=== PATIENT | male | born 1950 | race Caucasian/White ===

== ENCOUNTER 2021-07-19 10:11 | Inpatient (IN) ==
[2021-07-19] MEDS ORDERED: Naloxone 0.4 MG/ML INJ IVP PRN (12:16)
[2021-07-19] MEDS ORDERED: Perflutren Lipid Microsphere 1.3 ML in 0.9 % Sodium Chloride 8.7 ML IVP PRN (12:24)
[2021-07-19] MEDS ORDERED: Dextrose Gel 15 GM/37.5 ML TUBE PO PRN ×2 (13:46)
[2021-07-19] MEDS ORDERED: *HR* Dextrose 50 % in Water (Syg) 50 ML SYRINGE IVP PRN (13:46)
[2021-07-19] MEDS ORDERED: D5% in Water 1,000 ML IVC PRN (13:46)
[2021-07-19 14:24] LABS: Chol/HDL Ratio 3.7 (0-4.9); Troponin I 0.96 ng/mL (< 0.04)
[2021-07-19 15:09] LABS: Estimated Average Glucose 203 mg/dl; Hemoglobin A1C 8.7 %
[2021-07-19] MEDS ORDERED: *HR* Heparin 5,000 UNIT/ML VIAL IVP PRN ×2 (16:01)
[2021-07-19] MEDS ORDERED: *HR* Heparin 5,000 UNIT/ML VIAL IVP ONE (16:01)
[2021-07-19] MEDS ORDERED: Heparin 25,000UNIT/250ML 1/2NS 25,000 UNIT/250 ML IV.SOLN IVC SCH (16:15)
[2021-07-19 16:33] LABS: Hematocrit 42.5 % (37.5-50.1); Hemoglobin 14.1 g/dL (12.9-16.9); Mean Corpuscular HGB Conc 33.2 g/dL (31.6-35.5); Mean Corpuscular Hemoglobin 29.4 pg (28.0-33.3); Mean Corpuscular Volume 88.5 fL (83.0-100.0); Mean Platelet Volume 10.9 fL (9.4-12.4); Platelet Count 141 K/mcL (140-400); Red Cell Distribution Width 13.9 % (11.5-14.5)
[2021-07-19 16:54] LABS: Prothrombin Time 32.8 Seconds (9.4-12.1)
[2021-07-19] MEDS: Insulin LISPRO 300 UNITS/3 ML VIAL SUBQ SCH (16:57)
[2021-07-19] MEDS ORDERED: carvediloL 25 MG TABLET PO SCH (17:00)
[2021-07-19 17:25] LABS: Heparin anti-factor XA UFH < 0.04 IU/mL (0.30-0.70)
[2021-07-20 07:01] LABS: Basophils % 0.3 %; Eosinophils # 0.1 K/mcL (0.0-0.6); Eosinophils % 1.4 %; Hematocrit 42.3 % (37.5-50.1); Hemoglobin 13.6 g/dL (12.9-16.9); Immature Granulocytes % 0.2 % (0-4); Lymphocytes # 3.8 K/mcL (0.6-4.6); Lymphocytes % 40.2 %; Mean Corpuscular HGB Conc 32.2 g/dL (31.6-35.5); Mean Corpuscular Hemoglobin 28.6 pg (28.0-33.3); Mean Corpuscular Volume 88.9 fL (83.0-100.0); Mean Platelet Volume 11.3 fL (9.4-12.4); Monocytes # 0.7 K/mcL (0.0-1.3); Monocytes % 7.2 %; Neutrophils # 4.8 K/mcL (1.6-8.9); Platelet Count 145 K/mcL (140-400); Red Blood Count 4.76 M/mcL (4.19-5.50); Red Cell Distribution Width 13.8 % (11.5-14.5); Segmented Neutrophils % 50.7 %; White Blood Count 9.4 K/mcL (4.3-11.1)
[2021-07-20] MEDS: Insulin LISPRO 300 UNITS/3 ML VIAL SUBQ SCH ×3 (07:01→16:07)
[2021-07-20 07:09] LABS: INR 2.6; Prothrombin Time 28.3 Seconds (9.4-12.1)
[2021-07-20 07:23] LABS: Alanine Aminotransferase 16 Units/L (7-52); Albumin 4.2 g/dL (3.5-5.7); Albumin/Globulin Ratio 1.5 (1.1-2.2); Alkaline Phosphatase 93 Units/L (34-104); Aspartate Amino Transferase 31 Units/L (13-39); BUN/Creatinine Ratio 23 (6-26); Bilirubin,Total 1.3 mg/dL (0.3-1.0); Blood Urea Nitrogen 24 mg/dL (8-23); Calcium 9.6 mg/dL (8.6-10.3); Carbon Dioxide 25 mEq/L (23-29); Chloride 107 mEq/L (98-107); Globulin 2.8 g/dL (2.4-3.5); Glucose 158 mg/dL (70-105); Osmolality,Calculated 295 (280-300); Potassium 4.3 mEq/L (3.5-5.1); Sodium 139 mEq/L (136-145); eGFR For African Americans > 60 (> 60); eGFR For Non-African Americans > 60 (> 60)
[2021-07-20] MEDS ORDERED: carvediloL 6.25 MG TABLET PO SCH (08:00)
[2021-07-20] MEDS: Aspirin Enteric Coated 81 MG Tablet PO SCH (08:50)
[2021-07-20] MEDS: amLODIPine 5 MG TABLET PO SCH (08:50)
[2021-07-20] MEDS: Isosorbide MONOnitrate (24 HR) 30 MG TAB.ER.24H PO SCH (08:50)
[2021-07-20] MEDS: lisinopriL 20 MG TABLET PO SCH (08:51)
[2021-07-20] MEDS: Furosemide 20 MG TABLET PO SCH (08:51)
[2021-07-20 09:54] LABS: Troponin I 3.49 ng/mL (< 0.04)
[2021-07-20 10:23] LABS: Magnesium 2.1 mg/dL (1.6-2.6); Phosphorous 2.6 mg/dL (2.7-4.5)
[2021-07-20] MEDS: carvediloL 6.25 MG TABLET PO SCH (16:07)
[2021-07-21 07:08] LABS: INR 1.5; Prothrombin Time 16.2 Seconds (9.4-12.1)
[2021-07-21] MEDS ORDERED: *HR* Heparin 5,000 UNIT/ML VIAL IVP PRN ×4 (08:05→08:42)
[2021-07-21] MEDS ORDERED: *HR* Heparin 5,000 UNIT/ML VIAL IVP ONE ×2 (08:05→08:42)
[2021-07-21 08:41] LABS: Hematocrit 43.7 % (37.5-50.1); Mean Corpuscular Volume 88.6 fL (83.0-100.0); Red Blood Count 4.93 M/mcL (4.19-5.50); Red Cell Distribution Width 13.6 % (11.5-14.5)
[2021-07-21 08:43] LABS: Hemoglobin 14.3 g/dL (12.9-16.9); Immature Platelets 8.3 % (1.1-6.1); Mean Corpuscular HGB Conc 32.7 g/dL (31.6-35.5)
[2021-07-21] MEDS ORDERED: Heparin 25,000UNIT/250ML 1/2NS 25,000 UNIT/250 ML IV.SOLN IVC SCH (08:45)
[2021-07-21 08:48] LABS: Heparin anti-factor XA UFH < 0.04 IU/mL (0.30-0.70)
[2021-07-21 08:49] LABS: INR 1.4; Prothrombin Time 15.3 Seconds (9.4-12.1)
[2021-07-21] MEDS: Insulin LISPRO 300 UNITS/3 ML VIAL SUBQ SCH ×3 (08:55→17:14)
[2021-07-21] MEDS: lisinopriL 20 MG TABLET PO SCH (08:57)
[2021-07-21] MEDS: Aspirin Enteric Coated 81 MG Tablet PO SCH (08:57)
[2021-07-21] MEDS: carvediloL 6.25 MG TABLET PO SCH ×2 (08:57→18:23)
[2021-07-21] MEDS: Isosorbide MONOnitrate (24 HR) 30 MG TAB.ER.24H PO SCH (08:58)
[2021-07-21] MEDS: amLODIPine 5 MG TABLET PO SCH (08:58)
[2021-07-21] MEDS: Furosemide 20 MG TABLET PO SCH (08:58)
[2021-07-21] MEDS: Heparin 25,000UNIT/250ML 1/2NS 25,000 UNIT/250 ML IV.SOLN IVC SCH (09:06)
[2021-07-21] MEDS ORDERED: *HR* Midazolam HCl 2 MG/2 ML VIAL ONE (12:58)
[2021-07-21] MEDS ORDERED: *HR* FentaNYL (PF) 100 MCG/2 ML VIAL ONE (12:58)
[2021-07-21] MEDS ORDERED: Nitroglycerin 1,000 MCG/5 ML VIAL IV ONE (12:59)
[2021-07-21] MEDS ORDERED: Heparin 1,000 UNITS/500 mL 500 ML ONE (12:59)
[2021-07-21] MEDS ORDERED: Iopamidol - 370 200 ML INFUS..BTL ONE (12:59)
[2021-07-21] MEDS ORDERED: *HR* Heparin 10,000 UNIT/10 ML VIAL ONE (12:59)
[2021-07-21] MEDS ORDERED: 0.9 % Sodium Chloride 2,000 ML ONE (12:59)
[2021-07-21] MEDS ORDERED: Warfarin perPT PO PRN (18:00)
[2021-07-21] MEDS ORDERED: *HR* Warfarin 4 MG TABLET PO ONE (18:00)
[2021-07-22 02:42] LABS: INR 1.3
[2021-07-22] MEDS: Insulin LISPRO 300 UNITS/3 ML VIAL SUBQ SCH ×3 (09:09→17:26)
[2021-07-22] MEDS: amLODIPine 5 MG TABLET PO SCH (09:11)
[2021-07-22] MEDS: Isosorbide MONOnitrate (24 HR) 30 MG TAB.ER.24H PO SCH (09:11)
[2021-07-22] MEDS: lisinopriL 20 MG TABLET PO SCH (09:12)
[2021-07-22] MEDS: Aspirin Enteric Coated 81 MG Tablet PO SCH (09:12)
[2021-07-22] MEDS: Furosemide 20 MG TABLET PO SCH (09:12)
[2021-07-22] MEDS: carvediloL 6.25 MG TABLET PO SCH ×2 (09:12→17:26)
[2021-07-22] MEDS: Heparin 25,000UNIT/250ML 1/2NS 25,000 UNIT/250 ML IV.SOLN IVC SCH (12:16)
[2021-07-23] MEDS: Heparin 25,000UNIT/250ML 1/2NS 25,000 UNIT/250 ML IV.SOLN IVC SCH ×2 (02:38→17:44)
[2021-07-23] MEDS: Aspirin Enteric Coated 81 MG Tablet PO SCH (08:51)
[2021-07-23] MEDS: Furosemide 20 MG TABLET PO SCH (08:51)
[2021-07-23] MEDS: Isosorbide MONOnitrate (24 HR) 30 MG TAB.ER.24H PO SCH (08:51)
[2021-07-23] MEDS: lisinopriL 20 MG TABLET PO SCH (08:51)
[2021-07-23] MEDS: amLODIPine 5 MG TABLET PO SCH (08:51)
[2021-07-23] MEDS: carvediloL 6.25 MG TABLET PO SCH ×2 (08:51→17:42)
[2021-07-23] MEDS: Insulin LISPRO 300 UNITS/3 ML VIAL SUBQ SCH ×3 (08:51→17:42)
[2021-07-23 11:26] LABS: INR 1.2; Prothrombin Time 13.9 Seconds (9.4-12.1)
[2021-07-24 01:48] LABS: INR 1.3
[2021-07-24] MEDS: amLODIPine 5 MG TABLET PO SCH (08:33)
[2021-07-24] MEDS: lisinopriL 20 MG TABLET PO SCH (08:33)
[2021-07-24] MEDS: Aspirin Enteric Coated 81 MG Tablet PO SCH (08:33)
[2021-07-24] MEDS: carvediloL 6.25 MG TABLET PO SCH ×2 (08:33→16:43)
[2021-07-24] MEDS: Furosemide 20 MG TABLET PO SCH (08:33)
[2021-07-24] MEDS: Isosorbide MONOnitrate (24 HR) 30 MG TAB.ER.24H PO SCH (08:34)
[2021-07-24] MEDS: Insulin LISPRO 300 UNITS/3 ML VIAL SUBQ SCH ×3 (08:35→16:43)
[2021-07-24] MEDS ORDERED: *HR* Heparin 5,000 UNIT/ML VIAL IVP PRN ×2 (09:25)
[2021-07-24] MEDS: Heparin 25,000UNIT/250ML 1/2NS 25,000 UNIT/250 ML IV.SOLN IVC SCH (10:00)
[2021-07-25] MEDS: Heparin 25,000UNIT/250ML 1/2NS 25,000 UNIT/250 ML IV.SOLN IVC SCH ×2 (01:53→19:03)
[2021-07-25 04:48] LABS: Basophils % 0.3 %; Eosinophils # 0.2 K/mcL (0.0-0.6); Eosinophils % 2.2 %; Hematocrit 39.8 % (37.5-50.1); Immature Granulocytes % 0.1 % (0-4); Immature Platelets 6.4 % (1.1-6.1); Lymphocytes # 3.7 K/mcL (0.6-4.6); Lymphocytes % 49.9 %; Mean Corpuscular HGB Conc 32.7 g/dL (31.6-35.5); Mean Corpuscular Hemoglobin 28.8 pg (28.0-33.3); Mean Corpuscular Volume 88.1 fL (83.0-100.0); Mean Platelet Volume 11.2 fL (9.4-12.4); Monocytes # 0.6 K/mcL (0.0-1.3); Monocytes % 7.6 %; Platelet Count 139 K/mcL (140-400); Red Blood Count 4.52 M/mcL (4.19-5.50); Red Cell Distribution Width 13.9 % (11.5-14.5); Segmented Neutrophils % 39.9 %; White Blood Count 7.4 K/mcL (4.3-11.1)
[2021-07-25 04:52] LABS: INR 1.3; Prothrombin Time 14.3 Seconds (9.4-12.1)
[2021-07-25 05:11] LABS: BUN/Creatinine Ratio 28 (6-26); Blood Urea Nitrogen 22 mg/dL (8-23); Calcium 9.1 mg/dL (8.6-10.3); Carbon Dioxide 24 mEq/L (23-29); Chloride 106 mEq/L (98-107); Glucose 217 mg/dL (70-105); Magnesium 1.9 mg/dL (1.6-2.6); Osmolality,Calculated 294 (280-300); Potassium 4.1 mEq/L (3.5-5.1); Sodium 137 mEq/L (136-145); eGFR For African Americans > 60 (> 60); eGFR For Non-African Americans > 60 (> 60)
[2021-07-25] MEDS: lisinopriL 20 MG TABLET PO SCH (09:01)
[2021-07-25] MEDS: carvediloL 6.25 MG TABLET PO SCH ×2 (09:01→17:22)
[2021-07-25] MEDS: Furosemide 20 MG TABLET PO SCH (09:01)
[2021-07-25] MEDS: Aspirin Enteric Coated 81 MG Tablet PO SCH (09:01)
[2021-07-25] MEDS: amLODIPine 5 MG TABLET PO SCH (09:01)
[2021-07-25] MEDS: Isosorbide MONOnitrate (24 HR) 30 MG TAB.ER.24H PO SCH (09:01)
[2021-07-25] MEDS: Insulin LISPRO 300 UNITS/3 ML VIAL SUBQ SCH ×3 (09:02→17:18)
[2021-07-25] MEDS: Chlorhexidine Rinse 15 ML MOUTHWASH MM SCH (23:47)
[2021-07-26 05:58] LABS: Basophils % 0.3 %; Immature Granulocytes % 0.3 % (0-4); Mean Corpuscular HGB Conc 32.7 g/dL (31.6-35.5); Red Cell Distribution Width 13.9 % (11.5-14.5)
[2021-07-26 06:00] LABS: Eosinophils # 0.1 K/mcL (0.0-0.6); Eosinophils % 1.6 %; Hematocrit 39.7 % (37.5-50.1); Immature Platelets 7.1 % (1.1-6.1); Lymphocytes # 3.5 K/mcL (0.6-4.6); Lymphocytes % 45.5 %; Mean Corpuscular Hemoglobin 28.8 pg (28.0-33.3); Mean Corpuscular Volume 87.8 fL (83.0-100.0); Mean Platelet Volume 11.2 fL (9.4-12.4); Monocytes # 0.6 K/mcL (0.0-1.3); Monocytes % 8.2 %; Neutrophils # 3.4 K/mcL (1.6-8.9); Platelet Count 142 K/mcL (140-400); Red Blood Count 4.52 M/mcL (4.19-5.50); Segmented Neutrophils % 44.1 %; White Blood Count 7.7 K/mcL (4.3-11.1)
[2021-07-26] MEDS ORDERED: Aspirin 81 MG TAB.CHEW PO ONE (06:00)
[2021-07-26 06:01] LABS: INR 1.2; Prothrombin Time 13.7 Seconds (9.4-12.1)
[2021-07-26 06:15] LABS: BUN/Creatinine Ratio 27 (6-26); Blood Urea Nitrogen 22 mg/dL (8-23); Calcium 9.6 mg/dL (8.6-10.3); Carbon Dioxide 23 mEq/L (23-29); Chloride 104 mEq/L (98-107); Chol/HDL Ratio 3.1 (0-4.9); Cholesterol 103 mg/dL (< 200); Glucose 220 mg/dL (70-105); HDL Cholesterol 33 mg/dL (40-59); LDL Cholesterol,Calculated 51 mg/dL (< 100); Osmolality,Calculated 288 (280-300); Potassium 4.1 mEq/L (3.5-5.1); Sodium 134 mEq/L (136-145); Triglycerides 95 mg/dL (< 150); eGFR For African Americans > 60 (> 60); eGFR For Non-African Americans > 60 (> 60)
[2021-07-26] MEDS: Insulin LISPRO 300 UNITS/3 ML VIAL SUBQ SCH ×3 (07:35→17:02)
[2021-07-26] MEDS: Furosemide 20 MG TABLET PO SCH (07:36)
[2021-07-26] MEDS: amLODIPine 5 MG TABLET PO SCH (07:36)
[2021-07-26] MEDS: Isosorbide MONOnitrate (24 HR) 30 MG TAB.ER.24H PO SCH (07:36)
[2021-07-26] MEDS: lisinopriL 20 MG TABLET PO SCH (07:36)
[2021-07-26] MEDS: carvediloL 6.25 MG TABLET PO SCH ×2 (08:26→17:02)
[2021-07-26] MEDS: Chlorhexidine Rinse 15 ML MOUTHWASH MM SCH ×2 (08:26→22:12)
[2021-07-26] MEDS ORDERED: Clindamycin 900 MG/50 ML 900 MG/50 ML IV.SOLN IVPB ONE (10:00)
[2021-07-26] MEDS ORDERED: Albumin Human 25% 25 GM/100 ML IV.SOLN IVPB ONE (11:07)
[2021-07-26] MEDS ORDERED: *HR* Phenylephrine 10 MG/ML VIAL IVC ONE (11:07)
[2021-07-26] MEDS ORDERED: Mannitol 25% vial 12.5 GM/50 ML VIAL IVPB ONE (11:07)
[2021-07-26] MEDS ORDERED: *HR* Magnesium Sulfate 2 GM/50 ML PIGGYBACK IVPB ONE (11:07)
[2021-07-26] MEDS ORDERED: Clindamycin 600 MG/50 ML IV.SOLN IVPB ONE (11:07)
[2021-07-26] MEDS ORDERED: *HR* Heparin 10,000 UNIT/10 ML VIAL IR ONE (11:07)
[2021-07-26] MEDS ORDERED: Tranexamic Acid 1,000 MG/10 ML VIAL IR ONE (11:07)
[2021-07-26] MEDS ORDERED: Lidocaine 2% Syringe 100 MG/5 ML IVP ONE (11:07)
[2021-07-26] MEDS ORDERED: *HR* Midazolam HCl 5 MG/5 ML VIAL IVP ONE (11:26)
[2021-07-26] MEDS ORDERED: *HR* FentaNYL (PF) 1,000 MCG/20 ML VIAL ONE (11:26)
[2021-07-26] MEDS ORDERED: niCARdipine 20 MG/200 ML MLS IVC ONE (11:28)
[2021-07-26] MEDS ORDERED: *HR* Norepinephrine 4 MG/4 ML VIAL IVC ONE (11:28)
[2021-07-26] MEDS ORDERED: *HR* Rocuronium Bromide 50 MG/5 ML VIAL ONE ×2 (11:28→17:34)
[2021-07-26] MEDS ORDERED: *HR* Etomidate 20 MG/10 ML AMPUL IVP ONE (11:29)
[2021-07-26] MEDS ORDERED: Tranexamic Acid 1,000 MG/10 ML VIAL ONE (11:29)
[2021-07-26] MEDS ORDERED: Calcium Gluconate 1,000 MG/10 ML VIAL ONE (11:29)
[2021-07-26] MEDS ORDERED: Protamine Sulfate 250 MG/25 ML VIAL IVP ONE (11:32)
[2021-07-26] MEDS ORDERED: NiCARdipine 2.5 MG/10 ML Syringe IVPB ONE ×2 (11:35→18:44)
[2021-07-26] MEDS ORDERED: DOBUTamine 1,000 MG/250 ML BAG ONE (11:35)
[2021-07-26] MEDS ORDERED: Papaverine 60 MG/2 ML VIAL IVP ONE (11:52)
[2021-07-26] MEDS ORDERED: Potassium Chloride 40 MEQ/200 ML BAG IVPB PRN (12:38)
[2021-07-26] MEDS ORDERED: Acetaminophen 325 MG TABLET PO PRN (12:38)
[2021-07-26] MEDS ORDERED: Insulin Regular, Human 100 UNIT/ML IV PRN (12:38)
[2021-07-26] MEDS ORDERED: Ondansetron 4 MG/2 ML VIAL IVP PRN (12:38)
[2021-07-26] MEDS ORDERED: *HR* Dextrose 50 % in Water (Syg) 50 ML SYRINGE IVP PRN (12:38)
[2021-07-26] MEDS ORDERED: Calcium Gluconate 1gm/50mL 1 GM/50 ML BAG IVPB PRN (12:41)
[2021-07-26 12:52] LABS: ABG Base Excess -3 mEq/L (-2 to 3); ABG Chloride 105 mEq/L (98-107); ABG Glucose 215 mg/dL (60-95); ABG HCO3 24 mEq/L (21-27); ABG Ionized Calcium 1.25 mmol/L (1.15-1.35); ABG Oxygen Saturation 96 % (95-98); ABG PCO2 49 mmHg (35-45); ABG PH 7.31 pH Units (7.32-7.45); ABG PO2 90 mmHg (85-104); ABG TCO2 26 mEq/L (20-26)
[2021-07-26 14:47] LABS: ABG Base Excess -2 mEq/L (-2 to 3); ABG Chloride 106 mEq/L (98-107); ABG Glucose 252 mg/dL (60-95); ABG HCO3 22 mEq/L (21-27); ABG Ionized Calcium 1.16 mmol/L (1.15-1.35); ABG Oxygen Saturation 99 % (95-98); ABG PCO2 38 mmHg (35-45); ABG PH 7.38 pH Units (7.32-7.45); ABG PO2 144 mmHg (85-104); ABG TCO2 24 mEq/L (20-26)
[2021-07-26] MEDS: Heparin 25,000UNIT/250ML 1/2NS 25,000 UNIT/250 ML IV.SOLN IVC SCH (15:40)
[2021-07-26] MEDS: Norepinephrine 4 MG/254 ML IV.SOLN IVC SCH ×2 (15:41→22:07)
[2021-07-26] MEDS: DOBUTamine 1,000 MG/250 ML BAG IVC SCH ×2 (15:41→19:58)
[2021-07-26] MEDS: Nitroprusside 50 MG in D5% in Water 250 ML IVC SCH (15:42)
[2021-07-26 15:45] LABS: ABG Base Excess 0 mEq/L (-2 to 3); ABG Chloride 102 mEq/L (98-107); ABG Glucose 196 mg/dL (60-95); ABG HCO3 24 mEq/L (21-27); ABG Ionized Calcium 1.11 mmol/L (1.15-1.35); ABG Oxygen Saturation 100 % (95-98); ABG PCO2 38 mmHg (35-45); ABG PH 7.41 pH Units (7.32-7.45); ABG PO2 602 mmHg (85-104); ABG TCO2 25 mEq/L (20-26)
[2021-07-26 16:44] LABS: ABG Base Excess 0 mEq/L (-2 to 3); ABG Chloride 103 mEq/L (98-107); ABG Glucose 231 mg/dL (60-95); ABG HCO3 24 mEq/L (21-27); ABG Ionized Calcium 1.15 mmol/L (1.15-1.35); ABG Oxygen Saturation 100 % (95-98); ABG PCO2 36 mmHg (35-45); ABG PH 7.44 pH Units (7.32-7.45); ABG PO2 488 mmHg (85-104); ABG TCO2 25 mEq/L (20-26)
[2021-07-26 17:11] LABS: ABG Base Excess 0 mEq/L (-2 to 3); ABG Chloride 105 mEq/L (98-107); ABG Glucose 229 mg/dL (60-95); ABG HCO3 25 mEq/L (21-27); ABG Ionized Calcium 1.32 mmol/L (1.15-1.35); ABG Oxygen Saturation 100 % (95-98); ABG PCO2 40 mmHg (35-45); ABG PO2 437 mmHg (85-104); ABG TCO2 26 mEq/L (20-26)
[2021-07-26 17:45] LABS: ABG Base Excess -1 mEq/L (-2 to 3); ABG Chloride 104 mEq/L (98-107); ABG Glucose 226 mg/dL (60-95); ABG HCO3 25 mEq/L (21-27); ABG Ionized Calcium 1.31 mmol/L (1.15-1.35); ABG Oxygen Saturation 100 % (95-98); ABG PCO2 43 mmHg (35-45); ABG PH 7.37 pH Units (7.32-7.45); ABG PO2 385 mmHg (85-104); ABG TCO2 26 mEq/L (20-26)
[2021-07-26] MEDS ORDERED: Albumin Human 5% 12.5 GM/250 ML IV.SOLN ONE ×2 (18:16→18:27)
[2021-07-26] MEDS ORDERED: EPINEPHrine 1 MG/ML VIAL ONE (18:38)
[2021-07-26] MEDS ORDERED: *HR* Vasopressin 20 UNIT/ML VIAL ONE (18:39)
[2021-07-26 19:16] LABS: ABG Base Excess -5 mEq/L (-2 to 3); ABG Chloride 105 mEq/L (98-107); ABG Glucose 303 mg/dL (60-95); ABG HCO3 21 mEq/L (21-27); ABG Ionized Calcium 1.29 mmol/L (1.15-1.35); ABG Oxygen Saturation 100 % (95-98); ABG PCO2 40 mmHg (35-45); ABG PH 7.32 pH Units (7.32-7.45); ABG PO2 373 mmHg (85-104); ABG TCO2 22 mEq/L (20-26)
[2021-07-26] MEDS ORDERED: Sodium Bicarbonate 50 MEQ/50 ML VIAL ONE (19:17)
[2021-07-26] MEDS ORDERED: Clindamycin 600 MG/50 ML 600 MG/50 ML IV.SOLN IVPB ONE (19:19)
[2021-07-26 20:13] LABS: ABG Base Excess -2 mEq/L (-2 to 3); ABG HCO3 24 mEq/L (21-27); ABG Oxygen Saturation 96 % (95-98); ABG PCO2 44 mmHg (35-45); ABG PH 7.34 pH Units (7.32-7.45); ABG PO2 89 mmHg (85-104); ABG TCO2 25 mEq/L (20-26); Blood Gas VT 600 cc
[2021-07-26 20:23] LABS: Basophils % 0.2 %; Hematocrit 34.9 % (37.5-50.1); Hemoglobin 11.6 g/dL (12.9-16.9); Immature Granulocytes % 0.5 % (0-4); Mean Corpuscular HGB Conc 33.2 g/dL (31.6-35.5); Mean Platelet Volume 10.7 fL (9.4-12.4)
[2021-07-26 20:25] LABS: Eosinophils % 0.2 %; Immature Platelets 6.9 % (1.1-6.1); Lymphocytes # 2.2 K/mcL (0.6-4.6); Lymphocytes % 23.2 %; Mean Corpuscular Hemoglobin 29.5 pg (28.0-33.3); Mean Corpuscular Volume 88.8 fL (83.0-100.0); Monocytes # 0.8 K/mcL (0.0-1.3); Monocytes % 8.1 %; Neutrophils # 6.4 K/mcL (1.6-8.9); Red Blood Count 3.93 M/mcL (4.19-5.50); Red Cell Distribution Width 13.7 % (11.5-14.5); Segmented Neutrophils % 67.8 %; White Blood Count 9.4 K/mcL (4.3-11.1)
[2021-07-26 20:36] LABS: Heparin anti-factor XA UFH < 0.04 IU/mL (0.30-0.70); INR 1.5; Prothrombin Time 17.1 Seconds (9.4-12.1)
[2021-07-26 20:38] LABS: BUN/Creatinine Ratio 27 (6-26); Blood Urea Nitrogen 20 mg/dL (8-23); Carbon Dioxide 25 mEq/L (23-29); Chloride 108 mEq/L (98-107); Glucose 227 mg/dL (70-105); Magnesium 2.3 mg/dL (1.6-2.6); Osmolality,Calculated 294 (280-300); Potassium 4.2 mEq/L (3.5-5.1); Sodium 137 mEq/L (136-145); eGFR For African Americans > 60 (> 60); eGFR For Non-African Americans > 60 (> 60)
[2021-07-26 20:40] LABS: Activated Partial Thrombo Time 28.8 Seconds (26.0-36.0)
[2021-07-26 20:43] LABS: Platelet Count 89 K/mcL (140-400)
[2021-07-26 21:12] LABS: Phosphorous 2.8 mg/dL (2.7-4.5)
[2021-07-26] MEDS: Albumin Human 5% 12.5 GM/250 ML IV.SOLN IVPB PRN ×2 (21:26→21:35)
[2021-07-26] MEDS: Clindamycin 900 MG/50 ML 900 MG/50 ML IV.SOLN IVPB SCH (22:01)
[2021-07-26] MEDS: *HR* FentaNYL (PF) 100 MCG/2 ML VIAL IVP PRN (22:11)
[2021-07-26 23:54] LABS: ABG Base Excess -1 mEq/L (-2 to 3); ABG HCO3 24 mEq/L (21-27); ABG Oxygen Saturation 98 % (95-98); ABG PCO2 41 mmHg (35-45); ABG PH 7.37 pH Units (7.32-7.45); ABG PO2 100 mmHg (85-104); ABG TCO2 25 mEq/L (20-26); Blood Gas VT 600 cc
[2021-07-27] MEDS: Clindamycin 900 MG/50 ML 900 MG/50 ML IV.SOLN IVPB SCH ×4 (00:09→23:14)
[2021-07-27] MEDS: *HR* OxyCODONE/APAP 5/325 TABLET PO PRN ×3 (00:09→19:54)
[2021-07-27 00:41] LABS: ABG Base Excess -1 mEq/L (-2 to 3); ABG HCO3 24 mEq/L (21-27); ABG Oxygen Saturation 97 % (95-98); ABG PCO2 43 mmHg (35-45); ABG PH 7.36 pH Units (7.32-7.45); ABG PO2 97 mmHg (85-104); ABG TCO2 26 mEq/L (20-26); Blood Gas Pressure Support 8 cm H2O
[2021-07-27] MEDS: *HR* FentaNYL (PF) 100 MCG/2 ML VIAL IVP PRN (02:45)
[2021-07-27 03:44] LABS: Hemoglobin 11.5 g/dL (12.9-16.9); Red Cell Distribution Width 14.1 % (11.5-14.5)
[2021-07-27 03:46] LABS: Basophils % 0.2 %; Hematocrit 35.6 % (37.5-50.1); Immature Granulocytes % 0.3 % (0-4); Immature Platelets 10.3 % (1.1-6.1); Lymphocytes # 2.2 K/mcL (0.6-4.6); Mean Corpuscular HGB Conc 32.3 g/dL (31.6-35.5); Mean Corpuscular Hemoglobin 28.7 pg (28.0-33.3); Mean Corpuscular Volume 88.8 fL (83.0-100.0); Mean Platelet Volume 11.1 fL (9.4-12.4); Monocytes # 1.2 K/mcL (0.0-1.3); Monocytes % 9.4 %; Neutrophils # 9.6 K/mcL (1.6-8.9); Platelet Count 114 K/mcL (140-400); Red Blood Count 4.01 M/mcL (4.19-5.50); Segmented Neutrophils % 73.1 %; White Blood Count 13.1 K/mcL (4.3-11.1)
[2021-07-27] MEDS: Albumin Human 5% 12.5 GM/250 ML IV.SOLN IVPB PRN ×3 (04:00→09:07)
[2021-07-27 04:01] LABS: BUN/Creatinine Ratio 25 (6-26); Blood Urea Nitrogen 21 mg/dL (8-23); Calcium 9.3 mg/dL (8.6-10.3); Carbon Dioxide 25 mEq/L (23-29); Chloride 108 mEq/L (98-107); Glucose 153 mg/dL (70-105); Magnesium 2.4 mg/dL (1.6-2.6); Osmolality,Calculated 292 (280-300); Potassium 4.3 mEq/L (3.5-5.1); Sodium 138 mEq/L (136-145); eGFR For African Americans > 60 (> 60); eGFR For Non-African Americans > 60 (> 60)
[2021-07-27 05:34] LABS: ABG Base Excess -1 mEq/L (-2 to 3); ABG HCO3 24 mEq/L (21-27); ABG Oxygen Saturation 98 % (95-98); ABG PCO2 39 mmHg (35-45); ABG PH 7.39 pH Units (7.32-7.45); ABG PO2 105 mmHg (85-104); ABG TCO2 25 mEq/L (20-26)
[2021-07-27] MEDS ORDERED: Sucralfate 1 GM TABLET PO SCH (06:00)
[2021-07-27] MEDS: Insulin LISPRO 300 UNITS/3 ML VIAL SUBQ SCH ×3 (07:30→19:56)
[2021-07-27] MEDS: Heparin 25,000UNIT/250ML 1/2NS 25,000 UNIT/250 ML IV.SOLN IVC SCH (07:30)
[2021-07-27] MEDS: Isosorbide MONOnitrate (24 HR) 30 MG TAB.ER.24H PO SCH (07:31)
[2021-07-27] MEDS: carvediloL 6.25 MG TABLET PO SCH (07:31)
[2021-07-27] MEDS: Chlorhexidine Rinse 15 ML MOUTHWASH MM SCH ×2 (07:31→19:53)
[2021-07-27] MEDS: amLODIPine 5 MG TABLET PO SCH (07:31)
[2021-07-27] MEDS: lisinopriL 20 MG TABLET PO SCH (07:32)
[2021-07-27] MEDS: Furosemide 20 MG TABLET PO SCH (07:33)
[2021-07-27] MEDS ORDERED: Amiodarone Premix 150 MG/100 ML BAG IVPB ONE (07:44)
[2021-07-27] MEDS: Pantoprazole 40 MG VIAL IVP SCH (07:53)
[2021-07-27] MEDS: *HR* Amiodarone 200 MG TABLET PO SCH ×2 (11:33→19:55)
[2021-07-27] MEDS: Aspirin Enteric Coated 81 MG Tablet PO SCH (11:33)
[2021-07-27] MEDS: Norepinephrine 4 MG/254 ML IV.SOLN IVC SCH (12:19)
[2021-07-27] MEDS: Nitroprusside 50 MG in D5% in Water 250 ML IVC SCH (14:11)
[2021-07-27] MEDS ORDERED: Dextrose Gel 15 GM/37.5 ML TUBE PO PRN ×2 (14:27)
[2021-07-27] MEDS ORDERED: D5% in Water 1,000 ML IVC PRN (14:27)
[2021-07-27] MEDS ORDERED: *HR* Dextrose 50 % in Water (Syg) 50 ML SYRINGE IVP PRN (14:27)
[2021-07-27] MEDS: *HR* Heparin 5,000 UNIT/ML VIAL SQ SCH (21:29)
[2021-07-28] MEDS: Norepinephrine 4 MG/254 ML IV.SOLN IVC SCH ×2 (02:09→15:40)
[2021-07-28] MEDS ORDERED: 0.9 % Sodium Chloride 1,000 ML ONE (03:34)
[2021-07-28 05:05] LABS: Basophils % 0.1 %; Eosinophils % 0.1 %; Immature Granulocytes % 0.5 % (0-4)
[2021-07-28 05:07] LABS: Hematocrit 30.5 % (37.5-50.1); Hemoglobin 10.2 g/dL (12.9-16.9); Immature Platelets 9.5 % (1.1-6.1); Lymphocytes # 2.1 K/mcL (0.6-4.6); Lymphocytes % 19.3 %; Mean Corpuscular HGB Conc 33.4 g/dL (31.6-35.5); Mean Corpuscular Hemoglobin 29.9 pg (28.0-33.3); Mean Corpuscular Volume 89.4 fL (83.0-100.0); Mean Platelet Volume 11.4 fL (9.4-12.4); Monocytes # 1.2 K/mcL (0.0-1.3); Monocytes % 10.8 %; Red Blood Count 3.41 M/mcL (4.19-5.50); Red Cell Distribution Width 14.4 % (11.5-14.5); Segmented Neutrophils % 69.2 %; White Blood Count 11.1 K/mcL (4.3-11.1)
[2021-07-28 05:09] LABS: Neutrophils # 7.7 K/mcL (1.6-8.9); Platelet Count 95 K/mcL (140-400)
[2021-07-28 05:22] LABS: Alanine Aminotransferase 32 Units/L (7-52); Albumin 3.8 g/dL (3.5-5.7); Albumin/Globulin Ratio 1.7 (1.1-2.2); Alkaline Phosphatase 52 Units/L (34-104); Aspartate Amino Transferase 50 Units/L (13-39); BUN/Creatinine Ratio 33 (6-26); Bilirubin,Total 1.5 mg/dL (0.3-1.0); Blood Urea Nitrogen 29 mg/dL (8-23); Calcium 9.1 mg/dL (8.6-10.3); Carbon Dioxide 22 mEq/L (23-29); Chloride 102 mEq/L (98-107); Globulin 2.2 g/dL (2.4-3.5); Glucose 197 mg/dL (70-105); Magnesium 2.1 mg/dL (1.6-2.6); Osmolality,Calculated 289 (280-300); Phosphorous 2.7 mg/dL (2.7-4.5); Potassium 4.3 mEq/L (3.5-5.1); Sodium 134 mEq/L (136-145); eGFR For African Americans > 60 (> 60); eGFR For Non-African Americans > 60 (> 60)
[2021-07-28] MEDS: *HR* Heparin 5,000 UNIT/ML VIAL SQ SCH ×3 (05:39→20:18)
[2021-07-28] MEDS: Pantoprazole 40 MG VIAL IVP SCH (07:58)
[2021-07-28] MEDS: Clindamycin 900 MG/50 ML 900 MG/50 ML IV.SOLN IVPB SCH (07:58)
[2021-07-28] MEDS: Aspirin Enteric Coated 81 MG Tablet PO SCH (07:58)
[2021-07-28] MEDS: Furosemide 20 MG TABLET PO SCH (07:58)
[2021-07-28] MEDS: Chlorhexidine Rinse 15 ML MOUTHWASH MM SCH ×2 (07:59→20:19)
[2021-07-28] MEDS: Insulin LISPRO 300 UNITS/3 ML VIAL SUBQ SCH ×4 (08:01→20:15)
[2021-07-28] MEDS: *HR* Amiodarone 200 MG TABLET PO SCH ×2 (09:08→20:19)
[2021-07-28] MEDS: Nitroprusside 50 MG in D5% in Water 250 ML IVC SCH (15:46)
[2021-07-28] MEDS: DOBUTamine 1,000 MG/250 ML BAG IVC SCH (16:39)
[2021-07-29] MEDS: *HR* OxyCODONE/APAP 5/325 TABLET PO PRN ×2 (03:00→20:26)
[2021-07-29] MEDS: Norepinephrine 4 MG/254 ML IV.SOLN IVC SCH ×2 (03:43→20:21)
[2021-07-29 03:44] LABS: Alanine Aminotransferase 34 Units/L (7-52); Albumin 3.6 g/dL (3.5-5.7); Albumin/Globulin Ratio 1.6 (1.1-2.2); Alkaline Phosphatase 53 Units/L (34-104); Aspartate Amino Transferase 32 Units/L (13-39); BUN/Creatinine Ratio 34 (6-26); Bilirubin,Total 1.3 mg/dL (0.3-1.0); Blood Urea Nitrogen 36 mg/dL (8-23); Carbon Dioxide 22 mEq/L (23-29); Chloride 101 mEq/L (98-107); Globulin 2.3 g/dL (2.4-3.5); Glucose 217 mg/dL (70-105); Magnesium 2.1 mg/dL (1.6-2.6); Osmolality,Calculated 289 (280-300); Potassium 4.1 mEq/L (3.5-5.1); Sodium 132 mEq/L (136-145); Total Protein 5.9 g/dL (6.4-8.9); eGFR For African Americans > 60 (> 60); eGFR For Non-African Americans > 60 (> 60)
[2021-07-29] MEDS: *HR* Heparin 5,000 UNIT/ML VIAL SQ SCH ×3 (05:10→20:27)
[2021-07-29] MEDS: Insulin LISPRO 300 UNITS/3 ML VIAL SUBQ SCH ×4 (08:20→20:23)
[2021-07-29] MEDS: Aspirin Enteric Coated 81 MG Tablet PO SCH (09:51)
[2021-07-29] MEDS: Chlorhexidine Rinse 15 ML MOUTHWASH MM SCH ×2 (09:52→20:22)
[2021-07-29] MEDS: Furosemide 20 MG TABLET PO SCH (09:52)
[2021-07-29] MEDS: Pantoprazole 40 MG VIAL IVP SCH (09:52)
[2021-07-29] MEDS: *HR* Amiodarone 200 MG TABLET PO SCH (09:52)
[2021-07-29] MEDS: Nitroprusside 50 MG in D5% in Water 250 ML IVC SCH (20:22)
[2021-07-30] MEDS: Norepinephrine 4 MG/254 ML IV.SOLN IVC SCH (03:27)
[2021-07-30] MEDS: DOBUTamine 1,000 MG/250 ML BAG IVC SCH ×2 (03:27→13:12)
[2021-07-30 05:52] LABS: Hematocrit 31.1 % (37.5-50.1); Hemoglobin 10.2 g/dL (12.9-16.9); Mean Corpuscular HGB Conc 32.8 g/dL (31.6-35.5); Mean Corpuscular Hemoglobin 28.7 pg (28.0-33.3); Mean Corpuscular Volume 87.6 fL (83.0-100.0); Mean Platelet Volume 11.8 fL (9.4-12.4); Platelet Count 166 K/mcL (140-400); Red Blood Count 3.55 M/mcL (4.19-5.50); Red Cell Distribution Width 14.2 % (11.5-14.5); White Blood Count 15.9 K/mcL (4.3-11.1)
[2021-07-30 06:18] LABS: Albumin 3.6 g/dL (3.5-5.7); Albumin/Globulin Ratio 1.4 (1.1-2.2); Bilirubin,Total 1.3 mg/dL (0.3-1.0); Calcium 9.2 mg/dL (8.6-10.3); Globulin 2.6 g/dL (2.4-3.5); Magnesium 2.5 mg/dL (1.6-2.6); Phosphorous 3.6 mg/dL (2.7-4.5); Potassium 4.5 mEq/L (3.5-5.1); Total Protein 6.2 g/dL (6.4-8.9)
[2021-07-30] MEDS: Aspirin Enteric Coated 81 MG Tablet PO SCH (08:14)
[2021-07-30] MEDS: Furosemide 20 MG TABLET PO SCH (08:14)
[2021-07-30] MEDS: Insulin LISPRO 300 UNITS/3 ML VIAL SUBQ SCH ×4 (08:15→20:34)
[2021-07-30] MEDS: Chlorhexidine Rinse 15 ML MOUTHWASH MM SCH ×2 (08:15→20:34)
[2021-07-30] MEDS: Pantoprazole 40 MG VIAL IVP SCH (08:15)
[2021-07-30] MEDS: *HR* Heparin 5,000 UNIT/ML VIAL SQ SCH ×3 (08:16→20:34)
[2021-07-30] MEDS ORDERED: *HR* Amiodarone 200 MG TABLET PO SCH (09:00)
[2021-07-30] MEDS: *HR* Amiodarone 200 MG TABLET PO SCH ×2 (09:26→20:33)
[2021-07-30] MEDS: Finasteride 5 MG TABLET PO SCH (10:31)
[2021-07-30] MEDS: Insulin DETEMIR 100 UNIT/ML X5UNITS SUBQ SCH ×2 (10:57→21:15)
[2021-07-30] MEDS: Nitroprusside 50 MG in D5% in Water 250 ML IVC SCH (13:12)
[2021-07-31 04:04] LABS: Hematocrit 29.8 % (37.5-50.1); Hemoglobin 9.8 g/dL (12.9-16.9); Mean Corpuscular HGB Conc 32.9 g/dL (31.6-35.5); Mean Corpuscular Hemoglobin 28.5 pg (28.0-33.3); Mean Corpuscular Volume 86.6 fL (83.0-100.0); Mean Platelet Volume 11.1 fL (9.4-12.4); Platelet Count 190 K/mcL (140-400); Red Blood Count 3.44 M/mcL (4.19-5.50); Red Cell Distribution Width 14.3 % (11.5-14.5); White Blood Count 14.5 K/mcL (4.3-11.1)
[2021-07-31 04:24] LABS: Alanine Aminotransferase 168 Units/L (7-52); Albumin 3.4 g/dL (3.5-5.7); Albumin/Globulin Ratio 1.4 (1.1-2.2); Alkaline Phosphatase 82 Units/L (34-104); Aspartate Amino Transferase 159 Units/L (13-39); BUN/Creatinine Ratio 48 (6-26); Bilirubin,Total 1.6 mg/dL (0.3-1.0); Blood Urea Nitrogen 66 mg/dL (8-23); Calcium 8.9 mg/dL (8.6-10.3); Carbon Dioxide 23 mEq/L (23-29); Chloride 98 mEq/L (98-107); Globulin 2.5 g/dL (2.4-3.5); Glucose 129 mg/dL (70-105); Magnesium 2.5 mg/dL (1.6-2.6); Osmolality,Calculated 287 (280-300); Potassium 3.9 mEq/L (3.5-5.1); Sodium 128 mEq/L (136-145); Total Protein 5.9 g/dL (6.4-8.9); eGFR For African Americans > 60 (> 60); eGFR For Non-African Americans 51 (> 60)
[2021-07-31] MEDS: *HR* Heparin 5,000 UNIT/ML VIAL SQ SCH ×3 (05:14→20:25)
[2021-07-31] MEDS: *HR* OxyCODONE/APAP 5/325 TABLET PO PRN (06:25)
[2021-07-31] MEDS: Chlorhexidine Rinse 15 ML MOUTHWASH MM SCH ×2 (07:27→20:25)
[2021-07-31] MEDS: Aspirin Enteric Coated 81 MG Tablet PO SCH (07:27)
[2021-07-31] MEDS: *HR* Amiodarone 200 MG TABLET PO SCH ×2 (07:27→20:25)
[2021-07-31] MEDS: Pantoprazole 40 MG VIAL IVP SCH (07:27)
[2021-07-31] MEDS: Furosemide 20 MG TABLET PO SCH (07:28)
[2021-07-31] MEDS: Finasteride 5 MG TABLET PO SCH (07:28)
[2021-07-31] MEDS: Norepinephrine 4 MG/254 ML IV.SOLN IVC SCH (07:31)
[2021-07-31] MEDS: Insulin DETEMIR 100 UNIT/ML X5UNITS SUBQ SCH ×2 (08:19→20:25)
[2021-07-31] MEDS: Insulin LISPRO 300 UNITS/3 ML VIAL SUBQ SCH ×4 (08:20→20:26)
[2021-07-31 19:15] LABS: Calcium 8.7 mg/dL (8.6-10.3); Potassium 4.1 mEq/L (3.5-5.1)
[2021-08-01 04:02] LABS: Hematocrit 29.9 % (37.5-50.1); Mean Corpuscular HGB Conc 33.4 g/dL (31.6-35.5); Mean Corpuscular Volume 86.7 fL (83.0-100.0); Mean Platelet Volume 11.2 fL (9.4-12.4); Platelet Count 244 K/mcL (140-400); Red Blood Count 3.45 M/mcL (4.19-5.50); Red Cell Distribution Width 14.3 % (11.5-14.5); White Blood Count 14.4 K/mcL (4.3-11.1)
[2021-08-01 04:21] LABS: Alanine Aminotransferase 142 Units/L (7-52); Albumin 3.3 g/dL (3.5-5.7); Albumin/Globulin Ratio 1.1 (1.1-2.2); Alkaline Phosphatase 99 Units/L (34-104); Aspartate Amino Transferase 89 Units/L (13-39); BUN/Creatinine Ratio 50 (6-26); Bilirubin,Total 1.1 mg/dL (0.3-1.0); Blood Urea Nitrogen 68 mg/dL (8-23); Calcium 8.7 mg/dL (8.6-10.3); Carbon Dioxide 20 mEq/L (23-29); Chloride 97 mEq/L (98-107); Globulin 2.9 g/dL (2.4-3.5); Glucose 173 mg/dL (70-105); Magnesium 2.7 mg/dL (1.6-2.6); Osmolality,Calculated 288 (280-300); Sodium 127 mEq/L (136-145); Total Protein 6.2 g/dL (6.4-8.9); eGFR For African Americans > 60 (> 60); eGFR For Non-African Americans 52 (> 60)
[2021-08-01] MEDS: *HR* Heparin 5,000 UNIT/ML VIAL SQ SCH ×3 (05:10→20:11)
[2021-08-01 06:36] LABS: Bilirubin,Direct 0.4 mg/dL (0.0-0.2); Bilirubin,Indirect 0.7 mg/dL (0.0-1.0)
[2021-08-01] MEDS: Aspirin Enteric Coated 81 MG Tablet PO SCH (07:09)
[2021-08-01] MEDS: Finasteride 5 MG TABLET PO SCH (07:09)
[2021-08-01] MEDS: *HR* Amiodarone 200 MG TABLET PO SCH (07:09)
[2021-08-01] MEDS: Pantoprazole 40 MG VIAL IVP SCH (07:09)
[2021-08-01] MEDS: Furosemide 20 MG TABLET PO SCH (07:09)
[2021-08-01] MEDS: Chlorhexidine Rinse 15 ML MOUTHWASH MM SCH ×2 (07:09→20:11)
[2021-08-01] MEDS: Insulin DETEMIR 100 UNIT/ML X5UNITS SUBQ SCH ×2 (07:42→20:11)
[2021-08-01] MEDS: Insulin LISPRO 300 UNITS/3 ML VIAL SUBQ SCH ×4 (07:42→20:12)
[2021-08-01 08:09] LABS: Creatinine,Urine 121 mg/dL; Sodium, Urine < 10.0 mEq/L
[2021-08-01] MEDS ORDERED: Albumin Human 5% 12.5 GM/250 ML IV.SOLN IVPB ONE (08:28)
[2021-08-01 16:19] LABS: BUN/Creatinine Ratio 53 (6-26); Blood Urea Nitrogen 68 mg/dL (8-23); Calcium 8.6 mg/dL (8.6-10.3); Carbon Dioxide 21 mEq/L (23-29); Chloride 97 mEq/L (98-107); Glucose 191 mg/dL (70-105); Osmolality,Calculated 291 (280-300); Potassium 3.8 mEq/L (3.5-5.1); Sodium 128 mEq/L (136-145); eGFR For African Americans > 60 (> 60); eGFR For Non-African Americans 55 (> 60)
[2021-08-02 03:51] LABS: Hematocrit 28.6 % (37.5-50.1); Hemoglobin 9.4 g/dL (12.9-16.9); Mean Corpuscular HGB Conc 32.9 g/dL (31.6-35.5); Mean Corpuscular Hemoglobin 28.1 pg (28.0-33.3); Mean Corpuscular Volume 85.4 fL (83.0-100.0); Mean Platelet Volume 10.8 fL (9.4-12.4); Platelet Count 233 K/mcL (140-400); Red Blood Count 3.35 M/mcL (4.19-5.50); Red Cell Distribution Width 13.9 % (11.5-14.5); White Blood Count 12.9 K/mcL (4.3-11.1)
[2021-08-02 04:12] LABS: Alanine Aminotransferase 111 Units/L (7-52); Albumin 3.4 g/dL (3.5-5.7); Albumin/Globulin Ratio 1.4 (1.1-2.2); Alkaline Phosphatase 103 Units/L (34-104); Aspartate Amino Transferase 64 Units/L (13-39); BUN/Creatinine Ratio 55 (6-26); Bilirubin,Direct 0.4 mg/dL (0.0-0.2); Bilirubin,Indirect 0.6 mg/dL (0.0-1.0); Blood Urea Nitrogen 75 mg/dL (8-23); Calcium 8.5 mg/dL (8.6-10.3); Carbon Dioxide 22 mEq/L (23-29); Chloride 96 mEq/L (98-107); Globulin 2.5 g/dL (2.4-3.5); Glucose 195 mg/dL (70-105); Magnesium 2.7 mg/dL (1.6-2.6); Osmolality,Calculated 290 (280-300); Potassium 3.8 mEq/L (3.5-5.1); Sodium 126 mEq/L (136-145); Total Protein 5.9 g/dL (6.4-8.9); eGFR For African Americans > 60 (> 60); eGFR For Non-African Americans 51 (> 60)
[2021-08-02] MEDS: Nitroprusside 50 MG in D5% in Water 250 ML IVC SCH ×2 (04:40→04:41)
[2021-08-02] MEDS: Norepinephrine 4 MG/254 ML IV.SOLN IVC SCH ×4 (04:40→07:57)
[2021-08-02] MEDS: *HR* Heparin 5,000 UNIT/ML VIAL SQ SCH ×4 (06:01→20:32)
[2021-08-02] MEDS: Aspirin Enteric Coated 81 MG Tablet PO SCH (08:16)
[2021-08-02] MEDS: Chlorhexidine Rinse 15 ML MOUTHWASH MM SCH ×2 (08:16→20:32)
[2021-08-02] MEDS: Finasteride 5 MG TABLET PO SCH (08:16)
[2021-08-02] MEDS: Insulin LISPRO 300 UNITS/3 ML VIAL SUBQ SCH ×4 (08:19→20:34)
[2021-08-02] MEDS: Insulin DETEMIR 100 UNIT/ML X5UNITS SUBQ SCH ×2 (08:20→20:34)
[2021-08-02] MEDS ORDERED: Vancomycin 1,750 MG/517.5 ML IV.SOLN IVPB ONE (10:45)
[2021-08-02] MEDS: 0.9 % Sodium Chloride 1,000 ML IVC SCH (10:54)
[2021-08-02] MEDS ORDERED: *HR* Midazolam HCl 2 MG/2 ML VIAL ONE (14:32)
[2021-08-02] MEDS ORDERED: 0.9 % Sodium Chloride 500 ML ONE (14:32)
[2021-08-02] MEDS ORDERED: Clindamycin 600 MG/50 ML 1,200 MG/100 ML IV.SOLN IVPB ONE (14:32)
[2021-08-02] MEDS ORDERED: *HR* FentaNYL (PF) 100 MCG/2 ML VIAL ONE (14:32)
[2021-08-02] MEDS ORDERED: 0.9 % Sodium Chloride 1,000 ML ONE (14:33)
[2021-08-03] MEDS: 0.9 % Sodium Chloride 1,000 ML IVC SCH (01:27)
[2021-08-03 03:49] LABS: Hematocrit 28.7 % (37.5-50.1); Hemoglobin 9.5 g/dL (12.9-16.9); Mean Corpuscular HGB Conc 33.1 g/dL (31.6-35.5); Mean Corpuscular Hemoglobin 28.5 pg (28.0-33.3); Mean Corpuscular Volume 86.2 fL (83.0-100.0); Mean Platelet Volume 10.4 fL (9.4-12.4); Platelet Count 253 K/mcL (140-400); Red Blood Count 3.33 M/mcL (4.19-5.50); Red Cell Distribution Width 13.8 % (11.5-14.5); White Blood Count 11.8 K/mcL (4.3-11.1)
[2021-08-03 04:05] LABS: Alanine Aminotransferase 91 Units/L (7-52); Albumin 3.4 g/dL (3.5-5.7); Albumin/Globulin Ratio 1.4 (1.1-2.2); Alkaline Phosphatase 103 Units/L (34-104); Aspartate Amino Transferase 48 Units/L (13-39); BUN/Creatinine Ratio 48 (6-26); Bilirubin,Direct 0.5 mg/dL (0.0-0.2); Bilirubin,Indirect 0.7 mg/dL (0.0-1.0); Bilirubin,Total 1.2 mg/dL (0.3-1.0); Blood Urea Nitrogen 59 mg/dL (8-23); Calcium 8.4 mg/dL (8.6-10.3); Carbon Dioxide 24 mEq/L (23-29); Chloride 98 mEq/L (98-107); Globulin 2.5 g/dL (2.4-3.5); Glucose 130 mg/dL (70-105); Magnesium 2.7 mg/dL (1.6-2.6); Osmolality,Calculated 286 (280-300); Sodium 129 mEq/L (136-145); Total Protein 5.9 g/dL (6.4-8.9); eGFR For African Americans > 60 (> 60); eGFR For Non-African Americans 58 (> 60)
[2021-08-03] MEDS: *HR* Heparin 5,000 UNIT/ML VIAL SQ SCH (06:06)
[2021-08-03] MEDS: Chlorhexidine Rinse 15 ML MOUTHWASH MM SCH (08:20)
[2021-08-03] MEDS: Aspirin Enteric Coated 81 MG Tablet PO SCH (08:21)
[2021-08-03] MEDS: Finasteride 5 MG TABLET PO SCH (08:21)
[2021-08-03] MEDS: Insulin LISPRO 300 UNITS/3 ML VIAL SUBQ SCH (08:24)
[2021-08-03] MEDS: Insulin DETEMIR 100 UNIT/ML X5UNITS SUBQ SCH (08:29)
[2021-08-03] MEDS ORDERED: Ondansetron 4 MG/2 ML VIAL IVP PRN (09:47)
[2021-08-03] MEDS ORDERED: Naloxone 0.4 MG/ML INJ IVP PRN (09:47)
[2021-08-03] MEDS ORDERED: Acetaminophen 325 MG TABLET PO PRN (09:47)
[2021-08-03] MEDS ORDERED: *HR* OxyCODONE/APAP 5/325 TABLET PO PRN (09:47)
[2021-08-03] MEDS ORDERED: D5% in Water 1,000 ML IVC PRN (09:47)
[2021-08-03] MEDS ORDERED: Dextrose Gel 15 GM/37.5 ML TUBE PO PRN ×2 (09:47)
[2021-08-03] MEDS ORDERED: *HR* Dextrose 50 % in Water (Syg) 50 ML SYRINGE IVP PRN (09:47)
[2021-08-03] MEDS ORDERED: Insulin LISPRO 300 UNITS/3 ML VIAL SUBQ SCH ×2 (11:30→21:00)
[2021-08-03 11:38] VITALS: BP 127/73; O2SAT 99
[2021-08-03 11:55] VITALS: PULSE 94
[2021-08-03 12:31] VITALS: TEMP 97.8
[2021-08-03] MEDS ORDERED: *HR* Heparin 5,000 UNIT/ML VIAL SQ SCH (14:00)
[2021-08-03] MEDS ORDERED: carvediloL 6.25 MG TABLET PO SCH (17:00)
[2021-08-03] MEDS ORDERED: Insulin DETEMIR 100 UNIT/ML X5UNITS SUBQ SCH (21:00)
[2021-08-04] MEDS ORDERED: Finasteride 5 MG TABLET PO SCH (09:00)
[2021-08-04] MEDS ORDERED: Furosemide 20 MG TABLET PO SCH (09:00)
[2021-08-04] MEDS ORDERED: Aspirin Enteric Coated 81 MG Tablet PO SCH (09:00)
== END 2021-08-03 14:41 | disposition home or self-care (01) | DRG 233 ==
LOC: 3BNU → SUATTDRO 12:00 → ICNU 07-26 13:50
PROVIDERS: ADMIT Hospitalist; ATTEND Family Medicine

== ENCOUNTER 2021-08-12 10:14 | Inpatient (IN) ==
[2021-08-12] MEDS ORDERED: Iopamidol - 370 500 ML MLS IVP ONE (12:15)
[2021-08-12] MEDS ORDERED: Ondansetron 4 MG/2 ML VIAL IVP PRN (12:21)
[2021-08-12] MEDS ORDERED: Melatonin 3 MG TABLET PO PRN (12:21)
[2021-08-12] MEDS ORDERED: Naloxone 0.4 MG/ML INJ IVP PRN (12:21)
[2021-08-12] MEDS ORDERED: Acetaminophen 325 MG TABLET PO PRN (12:21)
[2021-08-12] MEDS ORDERED: D5% in Water 1,000 ML IVC PRN (12:22)
[2021-08-12] MEDS ORDERED: Dextrose Gel 15 GM/37.5 ML TUBE PO PRN ×2 (12:22)
[2021-08-12] MEDS ORDERED: *HR* Dextrose 50 % in Water (Syg) 50 ML SYRINGE IVP PRN (12:22)
[2021-08-12 12:59] LABS: White Blood Count 9.8 K/mcL (4.3-11.1)
[2021-08-12 13:00] LABS: Basophils % 0.3 %; Eosinophils # 0.1 K/mcL (0.0-0.6); Eosinophils % 0.9 %; Hematocrit 31.1 % (37.5-50.1); Hemoglobin 9.5 g/dL (12.9-16.9); Immature Granulocytes % 0.5 % (0-4); Lymphocytes # 2.7 K/mcL (0.6-4.6); Lymphocytes % 27.6 %; Mean Corpuscular HGB Conc 30.5 g/dL (31.6-35.5); Mean Corpuscular Hemoglobin 28.2 pg (28.0-33.3); Mean Platelet Volume 9.4 fL (9.4-12.4); Monocytes # 0.6 K/mcL (0.0-1.3); Monocytes % 6.2 %; Neutrophils # 6.3 K/mcL (1.6-8.9); Platelet Count 296 K/mcL (140-400); Red Blood Count 3.37 M/mcL (4.19-5.50); Red Cell Distribution Width 14.5 % (11.5-14.5); Segmented Neutrophils % 64.5 %
[2021-08-12 13:11] LABS: INR 1.9
[2021-08-12 13:18] LABS: BUN/Creatinine Ratio 23 (6-26); Blood Urea Nitrogen 26 mg/dL (8-23); C-Reactive Protein 38 mg/L (Less than 10); Carbon Dioxide 27 mEq/L (23-29); Chloride 103 mEq/L (98-107); Glucose 151 mg/dL (70-105); Osmolality,Calculated 292 (280-300); Sodium 137 mEq/L (136-145); eGFR For African Americans > 60 (> 60); eGFR For Non-African Americans > 60 (> 60)
[2021-08-12 13:48] LABS: Mean Corpuscular Volume 92.3 fL (83.0-100.0)
[2021-08-12 14:24] LABS: Activated Partial Thrombo Time 34.1 Seconds (26.0-36.0)
[2021-08-12 14:32] LABS: Chol/HDL Ratio 3.5 (0-4.9); Cholesterol 83 mg/dL (< 200); HDL Cholesterol 24 mg/dL (40-59); LDL Cholesterol,Calculated 34 mg/dL (< 100); Triglycerides 127 mg/dL (< 150)
[2021-08-12] MEDS: carvediloL 6.25 MG TABLET PO SCH (16:58)
[2021-08-12] MEDS: Chlorhexidine Rinse 15 ML MOUTHWASH MM SCH (20:00)
[2021-08-13 05:56] LABS: Hematocrit 30.4 % (37.5-50.1); Hemoglobin 9.3 g/dL (12.9-16.9); Mean Corpuscular HGB Conc 30.6 g/dL (31.6-35.5); Mean Corpuscular Hemoglobin 28.2 pg (28.0-33.3); Mean Corpuscular Volume 92.1 fL (83.0-100.0); Mean Platelet Volume 9.7 fL (9.4-12.4); Platelet Count 271 K/mcL (140-400); Red Cell Distribution Width 14.5 % (11.5-14.5); White Blood Count 8.4 K/mcL (4.3-11.1)
[2021-08-13] MEDS ORDERED: Vancomycin 1,750 MG/517.5 ML IV.SOLN IVPB ONE (06:00)
[2021-08-13] MEDS ORDERED: Clindamycin 900 MG/50 ML 900 MG/50 ML IV.SOLN IVPB ONE (06:00)
[2021-08-13] MEDS ORDERED: Aspirin 81 MG TAB.CHEW PO ONE (06:00)
[2021-08-13 06:04] LABS: INR 1.8; Prothrombin Time 19.6 Seconds (9.4-12.1)
[2021-08-13 06:12] LABS: BUN/Creatinine Ratio 23 (6-26); Blood Urea Nitrogen 26 mg/dL (8-23); Calcium 8.8 mg/dL (8.6-10.3); Carbon Dioxide 28 mEq/L (23-29); Chloride 104 mEq/L (98-107); Glucose 165 mg/dL (70-105); Magnesium 2.2 mg/dL (1.6-2.6); Osmolality,Calculated 292 (280-300); Potassium 4.7 mEq/L (3.5-5.1); Sodium 137 mEq/L (136-145); eGFR For African Americans > 60 (> 60); eGFR For Non-African Americans > 60 (> 60)
[2021-08-13] MEDS ORDERED: *HR* Rocuronium Bromide 50 MG/5 ML VIAL ONE (07:12)
[2021-08-13] MEDS ORDERED: *HR* Propofol 200 MG/20 ML VIAL IVP ONE (07:12)
[2021-08-13] MEDS ORDERED: Ondansetron 4 MG/2 ML VIAL ONE (07:13)
[2021-08-13] MEDS ORDERED: Lidocaine 2% Syringe 100 MG/5 ML ONE (07:13)
[2021-08-13] MEDS ORDERED: *HR* FentaNYL (PF) 250 MCG/5 ML VIAL ONE (07:17)
[2021-08-13] MEDS ORDERED: Vancomycin 1,000 MG VIAL ONE (07:46)
[2021-08-13] MEDS: carvediloL 6.25 MG TABLET PO SCH ×2 (07:57→17:32)
[2021-08-13] MEDS: Chlorhexidine Rinse 15 ML MOUTHWASH MM SCH (07:57)
[2021-08-13] MEDS ORDERED: *HR* HYDROmorphone PF 0.5 MG/0.5 ML SYRINGE IVP PRN (08:20)
[2021-08-13] MEDS ORDERED: *HR* OxyCODONE Immed Rel 5 MG TABLET PO PRN (08:20)
[2021-08-13] MEDS ORDERED: Ondansetron 4 MG/2 ML VIAL IVP PRN ×2 (08:20→10:14)
[2021-08-13] MEDS ORDERED: Albuterol 2.5 MG/3 ML NEBULIZER IH PRN (08:20)
[2021-08-13] MEDS ORDERED: Clindamycin 600 MG/50 ML 600 MG/50 ML IV.SOLN IVPB ONE ×2 (08:41→08:53)
[2021-08-13] MEDS ORDERED: Furosemide 20 MG TABLET PO SCH (09:00)
[2021-08-13] MEDS ORDERED: Isosorbide MONOnitrate (24 HR) 30 MG TAB.ER.24H PO SCH (09:00)
[2021-08-13] MEDS ORDERED: Dextrose Gel 15 GM/37.5 ML TUBE PO PRN ×4 (10:14)
[2021-08-13] MEDS ORDERED: Naloxone 0.4 MG/ML INJ IVP PRN (10:14)
[2021-08-13] MEDS ORDERED: Melatonin 3 MG TABLET PO PRN (10:14)
[2021-08-13] MEDS ORDERED: D5% in Water 1,000 ML IVC PRN (10:14)
[2021-08-13] MEDS ORDERED: Iopamidol - 370 500 ML MLS IVP ONE (10:14)
[2021-08-13] MEDS ORDERED: *HR* Dextrose 50 % in Water (Syg) 50 ML SYRINGE IVP PRN (10:14)
[2021-08-13] MEDS: Insulin LISPRO 300 UNITS/3 ML VIAL SUBQ SCH ×3 (12:31→21:23)
[2021-08-13] MEDS: Cefepime HCl 2,000 MG in 0.9 % Sodium Chloride 10 ML IVPB SCH ×2 (13:50→21:22)
[2021-08-13] MEDS: Vancomycin 1,750 MG/517.5 ML IV.SOLN IVPB SCH (17:51)
[2021-08-13] MEDS ORDERED: *HR* Warfarin 4 MG TABLET PO ONE (18:00)
[2021-08-13] MEDS ORDERED: *HR* Warfarin 0.5 MG TABLET PO ONE (18:00)
[2021-08-13] MEDS ORDERED: Warfarin perPT PO PRN (18:00)
[2021-08-13] MEDS: Acetaminophen 325 MG TABLET PO PRN (21:23)
[2021-08-14 03:19] LABS: Hematocrit 29.6 % (37.5-50.1); Hemoglobin 9.1 g/dL (12.9-16.9); Mean Corpuscular HGB Conc 30.7 g/dL (31.6-35.5); Mean Corpuscular Hemoglobin 27.7 pg (28.0-33.3); Mean Corpuscular Volume 90.2 fL (83.0-100.0); Mean Platelet Volume 9.8 fL (9.4-12.4); Platelet Count 276 K/mcL (140-400); Red Blood Count 3.28 M/mcL (4.19-5.50); Red Cell Distribution Width 14.3 % (11.5-14.5); White Blood Count 8.9 K/mcL (4.3-11.1)
[2021-08-14 03:26] LABS: INR 1.9; Prothrombin Time 21.2 Seconds (9.4-12.1)
[2021-08-14 03:38] LABS: BUN/Creatinine Ratio 30 (6-26); Blood Urea Nitrogen 34 mg/dL (8-23); Calcium 8.9 mg/dL (8.6-10.3); Carbon Dioxide 23 mEq/L (23-29); Chloride 103 mEq/L (98-107); Glucose 246 mg/dL (70-105); Magnesium 2.2 mg/dL (1.6-2.6); Osmolality,Calculated 294 (280-300); Potassium 5.3 mEq/L (3.5-5.1); Sodium 134 mEq/L (136-145); eGFR For African Americans > 60 (> 60); eGFR For Non-African Americans > 60 (> 60)
[2021-08-14] MEDS: Cefepime HCl 2,000 MG in 0.9 % Sodium Chloride 10 ML IVPB SCH ×3 (06:49→19:57)
[2021-08-14] MEDS: Vancomycin 1,750 MG/517.5 ML IV.SOLN IVPB SCH ×2 (06:49→17:30)
[2021-08-14] MEDS: Furosemide 20 MG TABLET PO SCH (08:09)
[2021-08-14] MEDS: Aspirin Enteric Coated 81 MG Tablet PO SCH (08:09)
[2021-08-14] MEDS: Isosorbide MONOnitrate (24 HR) 30 MG TAB.ER.24H PO SCH (08:09)
[2021-08-14] MEDS: Insulin LISPRO 300 UNITS/3 ML VIAL SUBQ SCH ×4 (08:10→19:59)
[2021-08-14] MEDS: carvediloL 6.25 MG TABLET PO SCH ×2 (08:10→17:26)
[2021-08-14] MEDS ORDERED: Aspirin Enteric Coated 81 MG Tablet PO SCH (09:00)
[2021-08-14] MEDS ORDERED: *HR* Warfarin 0.5 MG TABLET PO ONE (18:00)
[2021-08-14] MEDS ORDERED: *HR* Warfarin 4 MG TABLET PO SCH (18:00)
[2021-08-14] MEDS ORDERED: Vancomycin 1,250 MG/262.5 ML IV.SOLN IVPB SCH (18:00)
[2021-08-14] MEDS: Acetaminophen 325 MG TABLET PO PRN (23:21)
[2021-08-15] MEDS: Cefepime HCl 2,000 MG in 0.9 % Sodium Chloride 10 ML IVPB SCH ×3 (05:31→20:15)
[2021-08-15] MEDS: Vancomycin 1,250 MG/262.5 ML IV.SOLN IVPB SCH ×2 (05:32→17:12)
[2021-08-15] MEDS: Insulin LISPRO 300 UNITS/3 ML VIAL SUBQ SCH ×4 (07:53→20:15)
[2021-08-15] MEDS: Aspirin Enteric Coated 81 MG Tablet PO SCH (07:54)
[2021-08-15] MEDS: Furosemide 20 MG TABLET PO SCH (07:54)
[2021-08-15] MEDS: Isosorbide MONOnitrate (24 HR) 30 MG TAB.ER.24H PO SCH (07:54)
[2021-08-15] MEDS: carvediloL 6.25 MG TABLET PO SCH ×2 (07:54→17:10)
[2021-08-15 12:06] LABS: INR 2.4; Prothrombin Time 27.1 Seconds (9.4-12.1)
[2021-08-15 12:11] LABS: BUN/Creatinine Ratio 25 (6-26); Blood Urea Nitrogen 30 mg/dL (8-23); Calcium 8.5 mg/dL (8.6-10.3); Carbon Dioxide 26 mEq/L (23-29); Chloride 104 mEq/L (98-107); Glucose 171 mg/dL (70-105); Osmolality,Calculated 290 (280-300); Potassium 4.7 mEq/L (3.5-5.1); Sodium 135 mEq/L (136-145); eGFR For African Americans > 60 (> 60); eGFR For Non-African Americans 60 (> 60)
[2021-08-15] MEDS ORDERED: *HR* Warfarin 3 MG TABLET PO ONE (18:00)
[2021-08-15] MEDS: Acetaminophen 325 MG TABLET PO PRN (20:14)
[2021-08-16 05:11] LABS: Hematocrit 30.2 % (37.5-50.1); Hemoglobin 9.4 g/dL (12.9-16.9); Mean Corpuscular HGB Conc 31.1 g/dL (31.6-35.5); Mean Corpuscular Hemoglobin 28.4 pg (28.0-33.3); Mean Corpuscular Volume 91.2 fL (83.0-100.0); Mean Platelet Volume 9.6 fL (9.4-12.4); Platelet Count 214 K/mcL (140-400); Red Blood Count 3.31 M/mcL (4.19-5.50); Red Cell Distribution Width 14.4 % (11.5-14.5); White Blood Count 8.5 K/mcL (4.3-11.1)
[2021-08-16 05:14] LABS: INR 2.6; Prothrombin Time 28.6 Seconds (9.4-12.1)
[2021-08-16 05:31] LABS: BUN/Creatinine Ratio 29 (6-26); Blood Urea Nitrogen 32 mg/dL (8-23); Calcium 8.5 mg/dL (8.6-10.3); Carbon Dioxide 24 mEq/L (23-29); Chloride 105 mEq/L (98-107); Glucose 150 mg/dL (70-105); Osmolality,Calculated 288 (280-300); Potassium 4.7 mEq/L (3.5-5.1); Sodium 134 mEq/L (136-145); eGFR For African Americans > 60 (> 60); eGFR For Non-African Americans > 60 (> 60)
[2021-08-16] MEDS: Cefepime HCl 2,000 MG in 0.9 % Sodium Chloride 10 ML IVPB SCH (05:54)
[2021-08-16] MEDS: Vancomycin 1,250 MG/262.5 ML IV.SOLN IVPB SCH (05:55)
[2021-08-16] MEDS: Furosemide 20 MG TABLET PO SCH (07:33)
[2021-08-16] MEDS: carvediloL 6.25 MG TABLET PO SCH ×2 (07:33→17:05)
[2021-08-16] MEDS: Aspirin Enteric Coated 81 MG Tablet PO SCH (07:33)
[2021-08-16] MEDS: Isosorbide MONOnitrate (24 HR) 30 MG TAB.ER.24H PO SCH (07:33)
[2021-08-16] MEDS: Insulin LISPRO 300 UNITS/3 ML VIAL SUBQ SCH ×4 (08:31→19:47)
[2021-08-16] MEDS: CeFAZolin 2,000 MG/120 ML BAG IVPB SCH ×2 (11:58→19:47)
[2021-08-16] MEDS ORDERED: CeFAZolin 2,000 MG/120 ML BAG IVPB SCH (16:00)
[2021-08-16] MEDS ORDERED: *HR* Warfarin 4 MG TABLET PO ONE (18:00)
[2021-08-16] MEDS: Acetaminophen 325 MG TABLET PO PRN (23:13)
[2021-08-17] MEDS: CeFAZolin 2,000 MG/120 ML BAG IVPB SCH ×3 (03:38→19:43)
[2021-08-17 05:52] LABS: INR 2.4; Prothrombin Time 26.3 Seconds (9.4-12.1)
[2021-08-17] MEDS: Insulin LISPRO 300 UNITS/3 ML VIAL SUBQ SCH ×4 (08:40→19:44)
[2021-08-17] MEDS: carvediloL 6.25 MG TABLET PO SCH ×2 (08:41→16:40)
[2021-08-17] MEDS: Isosorbide MONOnitrate (24 HR) 30 MG TAB.ER.24H PO SCH (08:41)
[2021-08-17] MEDS: Furosemide 20 MG TABLET PO SCH (08:41)
[2021-08-17] MEDS: Aspirin Enteric Coated 81 MG Tablet PO SCH (08:41)
[2021-08-17] MEDS ORDERED: *HR* Warfarin 3 MG TABLET PO ONE (18:00)
[2021-08-17] MEDS: Acetaminophen 325 MG TABLET PO PRN (19:44)
[2021-08-18] MEDS: CeFAZolin 2,000 MG/120 ML BAG IVPB SCH (03:44)
[2021-08-18 04:20] LABS: INR 2.3; Prothrombin Time 25.5 Seconds (9.4-12.1)
[2021-08-18 04:33] LABS: Albumin 3.3 g/dL (3.5-5.7); Albumin/Globulin Ratio 1.1 (1.1-2.2); Bilirubin,Direct 0.2 mg/dL (0.0-0.2); Bilirubin,Indirect 0.4 mg/dL (0.0-1.0); Bilirubin,Total 0.6 mg/dL (0.3-1.0); Total Protein 6.3 g/dL (6.4-8.9)
[2021-08-18 04:35] LABS: BUN/Creatinine Ratio 20 (6-26); Blood Urea Nitrogen 18 mg/dL (8-23); C-Reactive Protein 36 mg/L (Less than 10); Calcium 8.9 mg/dL (8.6-10.3); Carbon Dioxide 26 mEq/L (23-29); Chloride 103 mEq/L (98-107); Glucose 163 mg/dL (70-105); Osmolality,Calculated 285 (280-300); Potassium 4.2 mEq/L (3.5-5.1); Sodium 135 mEq/L (136-145); eGFR For African Americans > 60 (> 60); eGFR For Non-African Americans > 60 (> 60)
[2021-08-18 06:39] VITALS: BP 169/57; TEMP 97.9
[2021-08-18] MEDS: Insulin LISPRO 300 UNITS/3 ML VIAL SUBQ SCH (08:03)
[2021-08-18] MEDS: Isosorbide MONOnitrate (24 HR) 30 MG TAB.ER.24H PO SCH (08:03)
[2021-08-18] MEDS: Furosemide 20 MG TABLET PO SCH (08:03)
[2021-08-18] MEDS: carvediloL 6.25 MG TABLET PO SCH (08:03)
[2021-08-18] MEDS: Aspirin Enteric Coated 81 MG Tablet PO SCH (08:03)
[2021-08-18] MEDS: Acetaminophen 325 MG TABLET PO PRN (08:06)
[2021-08-18 09:57] VITALS: PULSE 60; O2SAT 99
[2021-08-18] MEDS ORDERED: *HR* Warfarin 3 MG TABLET PO ONE (18:00)
== END 2021-08-18 10:40 | disposition home health service (06) | DRG 857 ==
LOC: 2ANU → 2NNU 08-14 16:31
PROVIDERS: ADMIT Internal Medicine; ATTEND Internal Medicine